=== PATIENT | male | born 1955 | race Caucasian/White ===

== ENCOUNTER 2020-12-20 09:02 | Outpatient (CLI) | payer MEDICARE ==
[2020-12-20] MEDS ORDERED: NEURIVA PO (09:34)
[2020-12-20] MEDS ORDERED: OMEG1CAP6 PO (09:34)
[2020-12-20] MEDS ORDERED: MATURE MVT PO (09:34)
[2020-12-20] MEDS ORDERED: S-AD400T3 PO (09:34)
[2020-12-20] MEDS ORDERED: PANT40TA6 PO (09:34)
[2020-12-20] MEDS ORDERED: MONT10TA17 PO (09:34)
[2020-12-20] MEDS ORDERED: [UNRECOGNIZED DRUG - OTHER] NAS (09:34)
[2020-12-20] MEDS ORDERED: FLUT12HF2 INH (09:34)
== END 2020-12-20 23:59 | disposition home or self-care (01) ==
LOC: STAR 09:02
PROVIDERS: ATTEND Urology
DX: Z01.818 Encounter for other preprocedural examination (principal); Z20.822 Contact with and (suspected) exposure to COVID-19; N40.1 Benign prostatic hyperplasia with lower urinary tract symptoms; R00.1 Bradycardia, unspecified; I44.0 Atrioventricular block, first degree
CPT/HCPCS: 87635; 93005

== ENCOUNTER 2020-12-25 11:21 | Day surgery (SDC) | payer MEDICARE ==
[~2020-12-25] VITALS: Ht 185.4 cm; Wt 90.3 kg
[~2020-12-25 11:21] MED LIST: FLUT12HF2 INH; MATURE MVT PO; MONT10TA17 PO; NEURIVA PO; OMEG1CAP6 PO; PANT40TA6 PO; S-AD400T3 PO; [UNRECOGNIZED DRUG - OTHER] NAS
[2020-12-25 11:46] VITALS: BP 129/86
[2020-12-25] MEDS ORDERED: CHLORHEXIDINE 15 ML UDC ONE (11:55)
[2020-12-25] MEDS ORDERED: LACTATED RINGERS 1,000 ML IV SCH (12:00)
[2020-12-25] MEDS ORDERED: CHLORHEXIDINE 15 ML UDC PO ONE (12:30)
[2020-12-25] MEDS ORDERED: MIDAZOLAM 1 MG/ML, 2ML ONE (12:39)
[2020-12-25] MEDS ORDERED: LABETALOL 5MG/ML, 20ML IV PRN (13:00)
[2020-12-25] MEDS ORDERED: FENTANYL PF 100 MCG/2ML IV PRN (13:00)
[2020-12-25] MEDS ORDERED: KETOROLAC 30 MG/1 ML IV PRN (13:00)
[2020-12-25] MEDS ORDERED: DIAZEPAM 5 MG/ML, 2ML IV PRN ×2 (13:00)
[2020-12-25] MEDS ORDERED: HYDROmorphone 1 MG/ML, 1ML INJ IV PRN (13:00)
[2020-12-25] MEDS ORDERED: hydrALAzine 20 MG/ML, 1ML IV PRN (13:00)
[2020-12-25] MEDS ORDERED: ONDANSETRON 2MG/ML, 2ML IVPush PRN (13:00)
[2020-12-25] MEDS ORDERED: MEPERIDINE/PF 25MG/0.5ML IVPush PRN (13:00)
[2020-12-25] MEDS ORDERED: PROMETHAZINE 25 MG/ML, 1ML IV PRN (13:00)
[2020-12-25] MEDS ORDERED: OXYcodone 5 MG/5 ML ORAL.SOL UDC PO PRN (13:00)
[2020-12-25] MEDS ORDERED: METOCLOPRAMIDE 5 MG/ML, 2ML IV PRN (13:00)
[2020-12-25] MEDS ORDERED: ALBUTEROL SULFATE 2.5 MG/3 ML NPPB PRN (13:00)
== END 2020-12-25 15:25 | disposition home or self-care (01) ==
LOC: OUT 11:21
PROVIDERS: ATTEND Urology
DX: N40.1 Benign prostatic hyperplasia with lower urinary tract symptoms (principal); N13.8 Other obstructive and reflux uropathy; I10 Essential (primary) hypertension; J45.909 Unspecified asthma, uncomplicated; Z79.899 Other long term (current) drug therapy
CPT/HCPCS: 52450; J2250; J7120